=== PATIENT | male | born 2005 | race Caucasian/White ===

== ENCOUNTER 2023-08-17 15:29 | Emergency (ER) | payer BC ==
[2023-08-17] MEDS ORDERED: Sodium Chloride 0.9% 1,000 ML IV ONE (16:00)
[2023-08-17] MEDS ORDERED: Ondansetron 4 MG/2 ML SDV IVPUSH ONE (16:01)
[2023-08-17] MEDS ORDERED: Ketorolac 30 MG/ML SDV IVPUSH ONE (16:01)
[2023-08-17 16:35] LABS: BASOPHILS ABSOLUTE AUTO 0.02 K/uL (0.00-0.30); BASOPHILS PERCENT AUTO 0.3 % (0.0-1.0); EOSINOPHILS ABSOLUTE AUTO 0.15 K/uL (0.00-0.70); EOSINOPHILS PERCENT AUTO 1.9 % (0.0-5.0); HEMATOCRIT 44.4 % (42.0-52.0); HEMOGLOBIN 15.6 g/dL (14.0-18.0); IMMATURE GRAN ABSOLUTE AUTO 0.01 K/uL (0.00-0.05); IMMATURE GRAN PERCENT AUTO 0.1 % (0.0-0.4); LYMPHOCYTES ABSOLUTE AUTO 1.65 K/uL (2.00-8.80); LYMPHOCYTES PERCENT AUTO 20.9 % (50.0-65.0); MEAN CORPUSCULAR HEMOGLOBIN 30.8 pg (28.0-32.0); MEAN CORPUSCULAR HGB CONC 35.1 g/dL (32.0-36.0); MEAN CORPUSCULAR VOLUME 87.7 fL (83.0-99.0); MEAN PLATELET VOLUME 10.5 fL (9.4-12.4); MONOCYTES ABSOLUTE AUTO 0.72 K/uL (0.10-1.40); MONOCYTES PERCENT AUTO 9.1 % (2.0-10.0); NEUTROPHILS ABSOLUTE AUTO 5.35 K/uL (1.50-8.50); NEUTROPHILS PERCENT AUTO 67.7 % (35.0-45.0); PLATELET COUNT,PLT 290 K/uL (150-400); RED BLOOD CELL COUNT 5.06 M/uL (4.52-5.90)
[2023-08-17 16:49] LABS: APPEARANCE,URINE CLEAR; BILIRUBIN,URINE NEGATIVE (NEGATIVE); COLOR,URINE YELLOW; GLUCOSE,URINE NEGATIVE (NEGATIVE); KETONES,URINE NEGATIVE (NEGATIVE); LEUKOCYTE ESTERASE,URINE NEGATIVE (NEGATIVE); NITRITE,URINE POSITIVE (NEGATIVE); OCCULT BLOOD,URINE NEGATIVE (NEGATIVE); PROTEIN,URINE NEGATIVE (NEGATIVE); UROBILINOGEN,URINE 0.2 EU/dL (<2.0)
[2023-08-17 17:03] LABS: BACTERIA,URINE RARE (NEGATIVE); EPITHELIAL CELLS,URINE RARE (NONE-FEW); RBC,URINE 0-1 (0-2/HPF); WBC,URINE 0-1 (0-5/HPF)
[2023-08-17 17:06] LABS: A/G RATIO 1.5 (0.9-1.6); ALBUMIN 4.5 g/dL (3.4-5.0); BILIRUBIN TOTAL 0.8 mg/dL (0.2-1.0); CALCIUM 9.6 mg/dL (8.5-10.1); CARBON DIOXIDE,CO2 29.1 mmol/L (21.0-32.0); CREATININE 1.1 mg/dL (0.8-1.3); EST CRCL DRUG DOSING (CG) 101.9 mL/min; POTASSIUM,K 3.9 mmol/L (3.5-5.1); PROTEIN TOTAL,TP 7.6 g/dL (6.4-8.2)
[2023-08-17 17:25] LABS: CORONAVIRUS COVID-19 NAA NEGATIVE (NEGATIVE); INFLUENZA A NAA NEGATIVE (NEGATIVE); INFLUENZA B NAA NEGATIVE (NEGATIVE); RESPIRATORY SYNCYTIAL VIR NAA NEGATIVE (NEGATIVE)
[2023-08-17 19:36] LABS: C. TRACHOMATIS BY PCR NOT DETECTED; N. GONORRHOEAE BY PCR NOT DETECTED
== END 2023-08-17 18:06 | disposition home or self-care (01) ==
LOC: MW.ED 15:29
DX: R51.9 Headache, unspecified (principal); N30.00 Acute cystitis without hematuria
CPT/HCPCS: 0241U; 36415; 80053; 81001; 85025; 87086; 87491; 87591; 96361; 96374; 96375; 99284; J1885; J2405; J7030

== ENCOUNTER 2023-09-24 07:32 | Emergency (ER) | payer BC ==
[2023-09-24 08:21] LABS: BASOPHILS ABSOLUTE AUTO 0.01 K/uL (0.00-0.30); BASOPHILS PERCENT AUTO 0.2 % (0.0-1.0); EOSINOPHILS ABSOLUTE AUTO 0.19 K/uL (0.00-0.70); EOSINOPHILS PERCENT AUTO 3.6 % (0.0-5.0); HEMOGLOBIN 13.6 g/dL (14.0-18.0); IMMATURE GRAN ABSOLUTE AUTO 0.01 K/uL (0.00-0.05); IMMATURE GRAN PERCENT AUTO 0.2 % (0.0-0.4); LYMPHOCYTES ABSOLUTE AUTO 1.86 K/uL (2.00-8.80); LYMPHOCYTES PERCENT AUTO 35.5 % (50.0-65.0); MEAN CORPUSCULAR HEMOGLOBIN 31.3 pg (28.0-32.0); MEAN CORPUSCULAR HGB CONC 35.8 g/dL (32.0-36.0); MEAN CORPUSCULAR VOLUME 87.4 fL (83.0-99.0); MEAN PLATELET VOLUME 10.5 fL (9.4-12.4); MONOCYTES ABSOLUTE AUTO 0.47 K/uL (0.10-1.40); NEUTROPHILS PERCENT AUTO 51.5 % (35.0-45.0); PLATELET COUNT,PLT 266 K/uL (150-400); RED BLOOD CELL COUNT 4.35 M/uL (4.52-5.90); WHITE BLOOD CELL COUNT,WBC 5.24 K/uL (4.5-13.5)
[2023-09-24 08:43] LABS: A/G RATIO 1.7 (0.9-1.6); ALANINE AMINOTRANSFERASE,ALT 21 IU/L (14-63); ALBUMIN 4.2 g/dL (3.4-5.0); ALKALINE PHOSPHATASE 51 U/L (46-116); ASPARTATE AMNIOTRANSFERASE,AST 11 IU/L (15-37); BILIRUBIN TOTAL 0.4 mg/dL (0.2-1.0); BLOOD UREA NITROGEN,BUN 13 mg/dL (7.0-18.0); CALCIUM 9.1 mg/dL (8.5-10.1); CARBON DIOXIDE,CO2 29.8 mmol/L (21.0-32.0); CHLORIDE,CL 105 mmol/L (98-107); CREATININE 1.2 mg/dL (0.8-1.3); EST CRCL DRUG DOSING (CG) 87.03 mL/min; ESTIMATED GFR 89 mL/min (>60); GLUCOSE RANDOM 99 mg/dL (74-106); MAGNESIUM 1.9 mg/dL (1.8-2.4); POTASSIUM,K 3.8 mmol/L (3.5-5.1); PROTEIN TOTAL,TP 6.7 g/dL (6.4-8.2); SODIUM,NA 142 mmol/L (136-148); TSH ULTRASENSITIVE 2.73 uIU/mL (0.36-3.74)
== END 2023-09-24 09:41 | disposition home or self-care (01) ==
LOC: MW.ED 07:32
DX: R00.2 Palpitations (principal)
CPT/HCPCS: 36415; 80053; 83735; 84443; 84484; 85025; 93005; 93246; 99285

== ENCOUNTER 2023-09-25 13:25 | Emergency (ER) | payer BC | END 2023-09-25 14:00 | disposition left against medical advice (07) | LOC: MW.ED 13:25 | DX: Z53.21 Procedure and treatment not carried out due to patient leaving prior to being seen by health care provider (principal) ==

== ENCOUNTER 2024-01-03 15:41 | Emergency (ER) | payer SELFPAY | END 2024-01-03 16:19 | LOC: MW.ED 15:41 | DX: Z02.89 Encounter for other administrative examinations (principal); R00.2 Palpitations; F17.210 Nicotine dependence, cigarettes, uncomplicated; Z75.8 Other problems related to medical facilities and other health care | CPT/HCPCS: 93010; 99282; 99283 ==

== ENCOUNTER 2024-04-10 17:15 | Emergency (ER) | payer SELFPAY ==
[2024-04-10] MEDS: Tetracaine HCl/PF 0.5% 4 ML Bottle EYEBOTH ONE (18:34)
[2024-04-10] MEDS: Diphtheria,Pertussis(Acell),Tetanus Vaccine 0.5 ML Syringe IM ONE (19:01)
[2024-04-10] MEDS: Ofloxacin 0.3% Ophth Soln 5 ML Bottle EYELF ONE (19:15)
[2024-04-10] MEDS: Erythromycin Base 0.5% Ophth Oint 1 GM Tube EYELF ONE (19:39)
== END 2024-04-10 20:12 | disposition home or self-care (01) ==
LOC: MW.ED 17:15
DX: T15.82XA Foreign body in other and multiple parts of external eye, left eye, initial encounter (principal); Z23 Encounter for immunization; Z75.8 Other problems related to medical facilities and other health care; W45.8XXA Other foreign body or object entering through skin, initial encounter
CPT/HCPCS: 67938; 90471; 90715; 99283; 99283-25; J3490

== ENCOUNTER 2025-02-07 17:38 | Emergency (ER) | payer SELFPAY ==
[2025-02-07] MEDS: Acetaminophen 500 MG Tab PO ONE (18:20)
[2025-02-07] MEDS: Ibuprofen 600 MG Tab PO ONE (18:20)
== END 2025-02-07 19:25 | disposition home or self-care (01) ==
LOC: MW.ED 17:38
DX: S62.317A Displaced fracture of base of fifth metacarpal bone, left hand, initial encounter for closed fracture (principal); Z75.3 Unavailability and inaccessibility of health-care facilities; F17.210 Nicotine dependence, cigarettes, uncomplicated; W22.8XXA Striking against or struck by other objects, initial encounter; Y93.89 Activity, other specified
CPT/HCPCS: 29125; 73130; 99283; A9270; 99282